=== PATIENT | female | born 1950 | race Caucasian/White ===

== ENCOUNTER 2017-09-01 20:30 | Inpatient (IN) | payer MEDICARE, OTHER ==
[~2017-09-01] VITALS: Ht 160 cm; Wt 64.4 kg
[2017-09-01] MEDS ORDERED: LAMO100T2 PO (20:57)
[2017-09-01] MEDS ORDERED: ESCI10TA PO (20:57)
[2017-09-01] MEDS ORDERED: SENN-167 PO (21:00)
[2017-09-01] MEDS ORDERED: LORA-258 PO (21:00)
[2017-09-01] MEDS ORDERED: DOCU-141 PO (21:00)
[2017-09-01] MEDS ORDERED: ACET-2154 PO (21:00)
[2017-09-01] MEDS ORDERED: NA P133E RC (21:00)
[2017-09-01] MEDS ORDERED: BISA5TAB13 PR (21:00)
[2017-09-01] MEDS ORDERED: MAGN400O6 PO (21:00)
[2017-09-01] MEDS ORDERED: QUET200T PO (21:00)
[2017-09-01 21:23] LABS: BASOPHILS % (AUTO) 0.3 % (0.0-2.0); EOSINOPHILS % (AUTO) 0.2 % (0.0-7.0); HEMATOCRIT 37.3 % (31.2-41.9); LYMPHOCYTES # (AUTO) 1.8 K/uL (20.0-40.0); LYMPHOCYTES % (AUTO) 12.9 % (20.5-51.5); MEAN CORPUSCULAR HGB CONC 35 g/dL (32.3-35.6); MEAN CORPUSCULAR VOLUME 82.9 fL (75.5-95.3); MONOCYTES # (AUTO) 0.6 K/uL (2.0-10.0); MONOCYTES % (AUTO) 4.4 % (0.0-11.0); NEUTROPHILS # (AUTO) 11.3 K/uL (1.8-8.9); NEUTROPHILS % (AUTO) 82.2 % (38.5-71.5); PLATELET COUNT (AUTO) 404 K/uL (179-408); WHITE BLOOD COUNT (AUTO) 13.8 K/uL (3.8-11.8)
[2017-09-01 21:31] LABS: CARBON DIOXIDE 30 mmol/L (21-32); CHLORIDE 99 mmol/L (98-107); GLUCOSE 107 mg/dL (74-106); POTASSIUM 3.4 mmol/L (3.5-5.1); UREA NITROGEN, BLOOD 14 mg/dL (7-18)
[2017-09-01 21:33] LABS: *BILIRUBIN,URIN NEGATIVE (NEGATIVE); *BLOOD, URINE NEGATIVE (NEGATIVE); *CLARITY,URINE CLEAR (CLEAR); *COLOR,URINE YELLOW (YELLOW); *KETONES,URINE TRACE (NEGATIVE); *PROTEIN,URINE NEGATIVE (NEGATIVE); LEUKOCYTE ESTERASE ,URINE 1+ (NEGATIVE); NITRITE, URINE NEGATIVE (NEGATIVE); UGLUCOSE NEGATIVE (NEGATIVE)
[2017-09-01 21:38] LABS: ETHANOL < 3 MG/DL (0-0)
[2017-09-01 21:44] LABS: THYROID STIMULATING HORMONE 5.048 mIU/mL (0.358-3.740)
[2017-09-01] MEDS ORDERED: OLANZAPINE 5 MG TABLET PO ONE (21:45)
[2017-09-01 21:46] LABS: ALANINE AMINOTRANSFERASE 41 U/L (14-59); ALKALINE PHOSPHATASE 91 U/L (50-136); ASPARTATE AMINOTRANSFERASE 30 U/L (15-37); BILIRUBIN,DIRECT 0.2 mg/dL (0.0-0.2); BILIRUBIN,TOTAL 0.6 mg/dL (0.2-1.0); TOTAL PROTEIN, SERUM 8.3 g/dL (6.4-8.2)
[2017-09-01 21:47] LABS: ACETAMINOPHEN < 2.0 ug/mL (10-30)
[2017-09-01 21:51] LABS: BACTERIA,URINE MODERATE /HPF (NONE SEEN); RBC,URINE 0-3 /HPF (0-3); SQUAMOUS EPITHELIAL CELL,UR FEW /HPF (NONE SEEN); WBC,URINE 0-3 /HPF (0-3)
[2017-09-01 21:55] LABS: *AMPHETAMINE, URINE NEGATIVE (NEGATIVE); *BARBITURATE, URINE NEGATIVE (NEGATIVE); *CANNABINOID, URINE NEGATIVE (NEGATIVE); *COCCAINE, URINE NEGATIVE (NEGATIVE); *OPIATE, URINE NEGATIVE (NEGATIVE); *PHENCYCLIDINE SCREEN,URINE NEGATIVE (NEGATIVE)
[2017-09-01] MEDS ORDERED: OLANZAPINE 5 MG TABLET ONE (21:57)
--- NOTE | 2017-09-01 22:12 | NUR ---
Pt. admitted to GPS, under care of Dr. Cohen Belongs List completed
[2017-09-01 22:30] VITALS: BP 167/91
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
[2017-09-01] MEDS ORDERED: BENA20TA2 PO (23:09)
[2017-09-01] MEDS ORDERED: LORAZEPAM 1 MG TABLET PO PRN (23:15)
[2017-09-01] MEDS ORDERED: TEMAZEPAM 7.5 MG CAPSULE PO PRN (23:15)
[2017-09-01] MEDS ORDERED: MAGNESIUM HYDROXIDE 30 ML LIQUID UDC PO PRN (23:15)
[2017-09-01] MEDS ORDERED: ACETAMINOPHEN 325 MG TABLET PO PRN (23:15)
[2017-09-01] MEDS ORDERED: CLONIDINE HCL 0.1 MG TABLET PO PRN (23:15)
[2017-09-01] MEDS ORDERED: MAG HYDROX/AL HYDROX/SIMETH 30 ML LIQUID UDC PO PRN (23:15)
[2017-09-01] MEDS: LORAZEPAM 0.5 MG TABLET PO PRN (23:17)
--- NOTE | 2017-09-01 23:25 | NUR ---
BP ELEVATED UPON ADMISSION. DR DOYLE NOTIFIED, CLONIDINE 0.1mg ORDERED AND ADMINISTERED. Pt SLEEPING WHEN RN WENT TO RE-CHECK 1 HOUR LATER. APPEARS TO BE IN NO DISTRESS, RESTING COMFORTABLY, BREATHING EVEN AND UNLABORED. WILL RE-CHECK IN AM.
[2017-09-01] MEDS ORDERED: LORAZEPAM 0.5 MG TABLET ONE (23:28)
[2017-09-01] MEDS ORDERED: CLONIDINE HCL 0.1 MG TABLET ONE (23:36)
[2017-09-01] MEDS ORDERED: FLEET ENEMA 133 ML BOTTLE RC PRN (23:45)
--- NOTE | 2017-09-02 07:07 | NUR ---
bp upon re-check 135/78, hr 83
[2017-09-02 08:00] VITALS: BP 124/63
[2017-09-02] MEDS ORDERED: LAMOTRIGINE 100 MG TABLET PO SCH (09:00)
[2017-09-02] MEDS: DOCUSATE SODIUM 100 MG CAPSULE PO SCH (09:05)
[2017-09-02] MEDS: NITROFURANTOIN/NITROFURAN MAC 100 MG CAPSULE PO SCH ×2 (09:06→20:08)
[2017-09-02] MEDS: BENAZEPRIL HCL 20 MG TABLET PO SCH (09:07)
[2017-09-02] MEDS: OLANZAPINE 2.5 MG TABLET PO SCH ×2 (13:36→16:49)
--- NOTE | 2017-09-02 15:31 | NUR ---
Group Therapy Note: S: Pt stated, I haven't done anything with my life O: Pt presented as guarded with a flat affect. . As the session went on the pt began to be more open and aware A: Pt appeared to be engaged during the session. Pt was able to be more positive about her experiences as she realized she had done something with her life. Pt gained insight into her strengths and came to realize that she has been a great help to her family. P: Patient will remain in the milieu and medication will be continued.
[2017-09-02 16:00] VITALS: BP 123/66
--- NOTE | 2017-09-02 17:01 | NUR ---
Initial Discharge Plan: [place] [address]; . Pt's son states that he wants his mother to continue staying at this SNF. SW will follow up with MD, patient, patient's son Clarence ([phone]). SW will form a safe and proper discharge.
[2017-09-02] MEDS: LAMOTRIGINE 100 MG TABLET PO SCH (20:08)
[2017-09-02] MEDS: SENNOSIDES 1 TABLET PO SCH (20:08)
[2017-09-02 20:38] VITALS: BP 137/61
[2017-09-03 07:30] VITALS: BP 152/72
[2017-09-03] MEDS: DOCUSATE SODIUM 100 MG CAPSULE PO SCH (09:04)
[2017-09-03] MEDS: NITROFURANTOIN/NITROFURAN MAC 100 MG CAPSULE PO SCH ×2 (09:04→21:34)
[2017-09-03] MEDS: LAMOTRIGINE 100 MG TABLET PO SCH ×2 (09:04→21:34)
[2017-09-03] MEDS: OLANZAPINE 2.5 MG TABLET PO SCH ×3 (09:05→16:47)
[2017-09-03] MEDS: BENAZEPRIL HCL 20 MG TABLET PO SCH (09:05)
[2017-09-03] MEDS: BENZTROPINE MESYLATE 1 MG TABLET PO SCH ×2 (12:48→16:47)
[2017-09-03] MEDS: risperiDONE 0.25 MG TABLET PO SCH ×2 (12:48→16:47)
[2017-09-03 15:00] VITALS: BP 121/68
[2017-09-03] MEDS ORDERED: hydrALAZINE HCL 25 MG TABLET PO PRN (16:00)
--- NOTE | 2017-09-03 17:47 | NUR ---
Gps/Chief Controller- Had been quiet this pm. remains sitting up in the activity room, less interactive. Had poor insight , encouraged verbalizations of her feelings, delusional. Needed prompting to initiate simple tasks.
[2017-09-03 20:00] VITALS: BP 148/98
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
[2017-09-03] MEDS: SENNOSIDES 1 TABLET PO SCH (21:34)
--- NOTE | 2017-09-04 08:02 | NUR ---
Gps/Lathe Hand- Delusional, paranoid, having flights of ideas, son Feliberto called, verbalized concerns, informed patient refusing to have her blood draws this am, patient thinks she is being jailed for no reason, refusing to talk to her son Feliberto accusing them of putting her to fci.
[2017-09-04] MEDS: OLANZAPINE 2.5 MG TABLET PO SCH ×2 (09:04→13:00)
[2017-09-04] MEDS: BENZTROPINE MESYLATE 1 MG TABLET PO SCH ×3 (09:04→16:48)
[2017-09-04] MEDS: risperiDONE 0.25 MG TABLET PO SCH ×2 (09:04→13:00)
[2017-09-04] MEDS: LAMOTRIGINE 100 MG TABLET PO SCH ×2 (09:04→20:16)
[2017-09-04] MEDS: DOCUSATE SODIUM 100 MG CAPSULE PO SCH (09:19)
[2017-09-04] MEDS: NITROFURANTOIN/NITROFURAN MAC 100 MG CAPSULE PO SCH ×2 (09:20→20:17)
[2017-09-04] MEDS: BENAZEPRIL HCL 10 MG TABLET PO SCH (09:24)
[2017-09-04 16:00] VITALS: BP 157/85
[2017-09-04] MEDS: risperiDONE 0.5 MG TABLET PO SCH (16:59)
[2017-09-04] MEDS ORDERED: risperiDONE 0.25 MG TABLET PO SCH (17:00)
[2017-09-04] MEDS: SENNOSIDES 1 TABLET PO SCH (20:16)
[2017-09-04] MEDS: OLANZAPINE 5 MG TABLET PO SCH (20:17)
[2017-09-04 20:59] VITALS: BP 132/70
[2017-09-04] MEDS ORDERED: OLANZAPINE 2.5 MG TABLET PO SCH ×2 (21:00)
[2017-09-05 07:30] VITALS: BP 124/76
[2017-09-05] MEDS: NITROFURANTOIN/NITROFURAN MAC 100 MG CAPSULE PO SCH ×3 (09:00→20:39)
[2017-09-05] MEDS: BENAZEPRIL HCL 10 MG TABLET PO SCH (09:00)
[2017-09-05] MEDS: risperiDONE 0.5 MG TABLET PO SCH ×2 (09:00→16:49)
[2017-09-05] MEDS: BENZTROPINE MESYLATE 1 MG TABLET PO SCH ×2 (09:00→16:49)
[2017-09-05] MEDS: DOCUSATE SODIUM 100 MG CAPSULE PO SCH (09:00)
[2017-09-05] MEDS: LAMOTRIGINE 100 MG TABLET PO SCH ×3 (09:00→20:38)
[2017-09-05 16:54] VITALS: BP 132/71
[2017-09-05] MEDS: SENNOSIDES 1 TABLET PO SCH ×2 (20:13→20:39)
[2017-09-05] MEDS: OLANZAPINE 5 MG TABLET PO SCH ×2 (20:13→20:39)
[2017-09-05 20:30] VITALS: BP 151/71
[2017-09-06 07:30] VITALS: BP 153/74
[2017-09-06 07:31] LABS: BASOPHILS # (AUTO) 0.1 K/uL (0.0-8.0); BASOPHILS % (AUTO) 0.7 % (0.0-2.0); EOSINOPHILS # (AUTO) 0.1 K/uL (0.0-0.7); EOSINOPHILS % (AUTO) 1.3 % (0.0-7.0); HEMATOCRIT 37.2 % (31.2-41.9); HEMOGLOBIN 12.7 g/dL (10.9-14.3); LYMPHOCYTES # (AUTO) 1.8 K/uL (20.0-40.0); LYMPHOCYTES % (AUTO) 26.3 % (20.5-51.5); MEAN CORPUSCULAR HEMOGLOBIN 28.8 uug (24.7-32.8); MEAN CORPUSCULAR HGB CONC 34 g/dL (32.3-35.6); MEAN CORPUSCULAR VOLUME 84.2 fL (75.5-95.3); MONOCYTES # (AUTO) 0.5 K/uL (2.0-10.0); MONOCYTES % (AUTO) 6.7 % (0.0-11.0); NEUTROPHILS # (AUTO) 4.5 K/uL (1.8-8.9); PLATELET COUNT (AUTO) 317 K/uL (179-408); RED BLOOD CELL COUNT(AUTO) 4.42 MIL/uL (3.63-4.92)
[2017-09-06 07:39] LABS: BILIRUBIN,TOTAL 0.7 mg/dL (0.2-1.0); CREATININE 0.9 mg/dL (0.6-1.3); MAGNESIUM 2.2 mg/dL (1.8-2.4); PHOSPHOROUS 3.2 mg/dL (2.5-4.9); TOTAL PROTEIN, SERUM 7.5 g/dL (6.4-8.2)
[2017-09-06 08:52] LABS: THYROID STIMULATING HORMONE 17.744 mIU/mL (0.358-3.740)
[2017-09-06] MEDS: DOCUSATE SODIUM 100 MG CAPSULE PO SCH (09:00)
[2017-09-06] MEDS: risperiDONE 0.5 MG TABLET PO SCH ×2 (09:00→16:57)
[2017-09-06] MEDS: LAMOTRIGINE 100 MG TABLET PO SCH (09:00)
[2017-09-06] MEDS: BENAZEPRIL HCL 10 MG TABLET PO SCH (09:00)
[2017-09-06] MEDS: BENZTROPINE MESYLATE 1 MG TABLET PO SCH ×2 (09:00→16:57)
[2017-09-06] MEDS: NITROFURANTOIN/NITROFURAN MAC 100 MG CAPSULE PO SCH ×2 (09:00→21:00)
[2017-09-06 20:00] VITALS: BP 143/88
[2017-09-06] MEDS: OLANZAPINE 5 MG TABLET PO SCH (21:00)
[2017-09-06] MEDS: SENNOSIDES 1 TABLET PO SCH (21:00)
[2017-09-07] MEDS: LEVOTHYROXINE SODIUM 25 MCG TABLET PO SCH (06:48)
[2017-09-07 07:30] VITALS: BP 157/87
[2017-09-07] MEDS: BENAZEPRIL HCL 10 MG TABLET PO SCH (08:31)
[2017-09-07] MEDS: DOCUSATE SODIUM 100 MG CAPSULE PO SCH (08:35)
[2017-09-07] MEDS: BENZTROPINE MESYLATE 1 MG TABLET PO SCH ×2 (08:35→16:44)
[2017-09-07] MEDS ORDERED: risperiDONE 0.5 MG TABLET PO SCH (09:00)
[2017-09-07] MEDS: ESCITALOPRAM OXALATE 10 MG TABLET PO SCH (13:09)
[2017-09-07] MEDS: risperiDONE 0.5 MG TABLET PO SCH ×2 (13:09→16:43)
[2017-09-07 17:13] VITALS: BP 121/80
--- NOTE | 2017-09-07 20:00 | NUR ---
PT RECEIVED IN HER ROOM BY THE DOOR STANDING AND LOOKING VERY FEARFUL. DENIES SI/HI/PAIN. TOOK ALL MEDS ORDERED, CONTINUE TO MONITOR CLOSELY.
[2017-09-07] MEDS: OLANZAPINE 5 MG TABLET PO SCH (20:10)
[2017-09-07] MEDS: SENNOSIDES 1 TABLET PO SCH (20:18)
[2017-09-07 20:26] VITALS: BP 126/57
[2017-09-08] MEDS: LEVOTHYROXINE SODIUM 25 MCG TABLET PO SCH (06:50)
[2017-09-08 07:30] VITALS: BP 141/75
[2017-09-08] MEDS: DOCUSATE SODIUM 100 MG CAPSULE PO SCH (08:59)
[2017-09-08] MEDS: ESCITALOPRAM OXALATE 10 MG TABLET PO SCH (08:59)
[2017-09-08] MEDS: BENAZEPRIL HCL 10 MG TABLET PO SCH (08:59)
[2017-09-08] MEDS: BENZTROPINE MESYLATE 1 MG TABLET PO SCH ×2 (08:59→17:51)
[2017-09-08] MEDS: risperiDONE 0.5 MG TABLET PO SCH ×3 (08:59→17:54)
[2017-09-08 15:00] VITALS: BP 128/71
[2017-09-08] MEDS: SENNOSIDES 1 TABLET PO SCH (20:37)
[2017-09-08] MEDS: OLANZAPINE 5 MG TABLET PO SCH (20:37)
[2017-09-08 20:58] VITALS: BP 137/75
[2017-09-08] MEDS ORDERED: risperiDONE 0.25 MG TABLET PO SCH (21:00)
[2017-09-09] MEDS: LEVOTHYROXINE SODIUM 25 MCG TABLET PO SCH (06:55)
[2017-09-09 07:06] LABS: *VITAMIN D 25-OH VIT D 31 ng/mL (.); *VITAMIN D 25-OH, D2 <1.0 ng/mL (.); *VITAMIN D 25-OH, D3 30 ng/mL (.)
[2017-09-09 08:00] VITALS: BP 110/71
[2017-09-09] MEDS: BENZTROPINE MESYLATE 1 MG TABLET PO SCH ×2 (08:46→17:00)
[2017-09-09] MEDS: risperiDONE 0.5 MG TABLET PO SCH ×2 (08:47→12:43)
[2017-09-09] MEDS: ESCITALOPRAM OXALATE 10 MG TABLET PO SCH (08:47)
[2017-09-09] MEDS: DOCUSATE SODIUM 100 MG CAPSULE PO SCH (08:47)
[2017-09-09] MEDS: BENAZEPRIL HCL 10 MG TABLET PO SCH (08:47)
[2017-09-09] MEDS ORDERED: OLANZAPINE 10 MG VIAL IM PRN (12:30)
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
[2017-09-09 16:00] VITALS: BP_SYST 117; BP_SYST 123; BP_DIAS 73; BP_DIAS 75
--- NOTE | 2017-09-09 17:58 | NUR ---
1700 patient pacing with periods of slapping her face, patient asked to stop and redirected to go to the dining room. Patient refused her medications due @ 1700 despite of the encouragement and educating the importance of her medication.
[2017-09-09] MEDS ORDERED: risperiDONE 0.25 MG TABLET PO SCH (20:00)
[2017-09-09 20:28] VITALS: BP 116/70
[2017-09-09] MEDS: SENNOSIDES 1 TABLET PO SCH (20:30)
[2017-09-09] MEDS: OLANZAPINE 10 MG VIAL IM PRN (20:30)
[2017-09-09] MEDS: LORAZEPAM 0.5 MG TABLET PO PRN (22:18)
[2017-09-09 22:19] VITALS: BP 120/72
--- NOTE | 2017-09-09 23:16 | NUR ---
Patient received intrusive, agitated, irritable. Patient refusing HS medication, refusing Risperdal 2mg patient is reised if refusing Risperdal 2mg give Zyprexa 5mg IM, given as ordered due to refusal of risperdal. Patient has poor impulse control, poor judgement, preoccupied with other residents. Patient denies pain at this time, will continue to monitor.
[2017-09-10] MEDS: LEVOTHYROXINE SODIUM 25 MCG TABLET PO SCH (06:47)
[2017-09-10 07:30] VITALS: BP 116/65
[2017-09-10] MEDS: BENZTROPINE MESYLATE 1 MG TABLET PO SCH ×2 (09:07→16:49)
[2017-09-10] MEDS: DOCUSATE SODIUM 100 MG CAPSULE PO SCH (09:07)
[2017-09-10] MEDS: BENAZEPRIL HCL 10 MG TABLET PO SCH (09:07)
[2017-09-10] MEDS: risperiDONE 0.5 MG TABLET PO SCH ×2 (09:08→13:00)
[2017-09-10] MEDS: OLANZAPINE 10 MG VIAL IM PRN (13:10)
[2017-09-10 15:00] VITALS: BP 106/67
[2017-09-10] MEDS ORDERED: MISCELLANEOUS MED XX PRN (15:00)
[2017-09-10] MEDS ORDERED: BENZTROPINE MESYLATE 2 MG/2 ML AMPUL IM PRN (15:00)
[2017-09-10] MEDS ORDERED: INVEGA SUSTENNA 156 MG IM ONE (16:00)
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
[2017-09-10] MEDS: LORAZEPAM 0.5 MG TABLET PO PRN (19:56)
[2017-09-10 20:00] VITALS: BP 121/61
--- NOTE | 2017-09-10 20:02 | NUR ---
GPS: PATIENT WONDERING AROUND. GARBING OTHER PATIENTS. CONFUSED AND DISORIENTED. ATIVAN 0.5 MG GIVEN.
[2017-09-10] MEDS: SENNOSIDES 1 TABLET PO SCH (20:05)
--- NOTE | 2017-09-10 20:57 | NUR ---
GPS: PATIENT IS CALM NOW. PRN EFFECTIVE FOR AGITATIONS.
--- NOTE | 2017-09-11 06:23 | NUR ---
GPS: REMAIN CONFUSED AND DISORIENTED. COOPERATIVE WITH MEDICATIONS AND CARE. SLEPT 9 HRS THROUGH THE NIGHT. NO BEHAVIOR PROBLEM NOTED AT THIS TIME..
[2017-09-11] MEDS: LEVOTHYROXINE SODIUM 25 MCG TABLET PO SCH (06:34)
[2017-09-11 07:30] VITALS: BP 117/80
[2017-09-11] MEDS: BENZTROPINE MESYLATE 1 MG TABLET PO SCH ×2 (08:37→17:05)
[2017-09-11] MEDS: DOCUSATE SODIUM 100 MG CAPSULE PO SCH (08:38)
[2017-09-11] MEDS: BENAZEPRIL HCL 10 MG TABLET PO SCH (08:38)
[2017-09-11] MEDS: LORAZEPAM 0.5 MG TABLET PO PRN (08:39)
[2017-09-11] MEDS ORDERED: OLANZAPINE 10 MG VIAL IM PRN (11:30)
[2017-09-11] MEDS: OLANZAPINE ZYDIS 5 MG TAB.RAPDIS PO SCH ×2 (11:30→21:05)
[2017-09-11] MEDS: OLANZAPINE 10 MG VIAL IM PRN (11:51)
[2017-09-11 15:00] VITALS: BP 112/68
[2017-09-11 20:24] VITALS: BP 117/68
[2017-09-11] MEDS: SENNOSIDES 1 TABLET PO SCH (21:04)
[2017-09-12] MEDS: LEVOTHYROXINE SODIUM 25 MCG TABLET PO SCH (06:18)
[2017-09-12 07:30] VITALS: BP 116/80
[2017-09-12] MEDS: BENZTROPINE MESYLATE 1 MG TABLET PO SCH ×2 (08:57→16:34)
[2017-09-12] MEDS: BENAZEPRIL HCL 10 MG TABLET PO SCH (08:58)
[2017-09-12] MEDS: DOCUSATE SODIUM 100 MG CAPSULE PO SCH (08:58)
[2017-09-12] MEDS: OLANZAPINE ZYDIS 5 MG TAB.RAPDIS PO SCH ×2 (11:44→23:02)
[2017-09-12 15:35] VITALS: BP 110/68
[2017-09-12] MEDS: SENNOSIDES 1 TABLET PO SCH (21:00)
[2017-09-12 21:15] VITALS: BP 94/62
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
--- NOTE | 2017-09-12 23:30 | NUR ---
PATIENT WAS COMPLIANT WITH [facility] MEDICATION REGIMENT. SHE IS AWAKE, HOWEVER, SHE REFUSED PO PRN FOR INSOMNIA MEDICATION AT THIS TIME. WILL CONTINUE TO MONITOR.
[2017-09-13] MEDS: LEVOTHYROXINE SODIUM 25 MCG TABLET PO SCH (06:18)
--- NOTE | 2017-09-13 06:22 | NUR ---
PATIENT SLEPT FOR APPROX 7.30HRS THROUGH THE NIGHT. SHE WAS COMPLIANT WITH [facility] MED. SHE CONTINUE WITH DEPRESSED MOOD, FLAT AFFECT, DISORGANIZED. WHEN ASKED HOW WAS HER NIGHT? SHE STATED "BAD, I FEEL THAT I AM ON AN STAGE." WHEN ASKED WHAT SHE MEANT? SHE KEPT QUITE. WILL CONTINUE TO MONITOR.
[2017-09-13 07:30] VITALS: BP 126/70
[2017-09-13 07:50] LABS: BASOPHILS % (AUTO) 0.6 % (0.0-2.0); EOSINOPHILS # (AUTO) 0.2 K/uL (0.0-0.7); EOSINOPHILS % (AUTO) 2.9 % (0.0-7.0); HEMATOCRIT 37.5 % (31.2-41.9); HEMOGLOBIN 12.6 g/dL (10.9-14.3); LYMPHOCYTES # (AUTO) 1.8 K/uL (20.0-40.0); LYMPHOCYTES % (AUTO) 31.3 % (20.5-51.5); MEAN CORPUSCULAR HEMOGLOBIN 28.7 uug (24.7-32.8); MEAN CORPUSCULAR HGB CONC 34 g/dL (32.3-35.6); MEAN CORPUSCULAR VOLUME 85.1 fL (75.5-95.3); MONOCYTES # (AUTO) 0.4 K/uL (2.0-10.0); MONOCYTES % (AUTO) 7.1 % (0.0-11.0); NEUTROPHILS # (AUTO) 3.3 K/uL (1.8-8.9); NEUTROPHILS % (AUTO) 58.1 % (38.5-71.5); PLATELET COUNT (AUTO) 245 K/uL (179-408); WHITE BLOOD COUNT (AUTO) 5.6 K/uL (3.8-11.8)
[2017-09-13 07:51] LABS: BILIRUBIN,TOTAL 0.3 mg/dL (0.2-1.0); CREATININE 0.7 mg/dL (0.6-1.3); MAGNESIUM 2.3 mg/dL (1.8-2.4); PHOSPHOROUS 3.5 mg/dL (2.5-4.9); POTASSIUM 4.1 mmol/L (3.5-5.1)
[2017-09-13 08:00] LABS: THYROID STIMULATING HORMONE 48.619 mIU/mL (0.358-3.740)
[2017-09-13] MEDS: BENZTROPINE MESYLATE 1 MG TABLET PO SCH ×2 (08:21→16:48)
[2017-09-13] MEDS: BENAZEPRIL HCL 10 MG TABLET PO SCH (08:21)
[2017-09-13] MEDS: DOCUSATE SODIUM 100 MG CAPSULE PO SCH (08:21)
[2017-09-13] MEDS: OLANZAPINE ZYDIS 5 MG TAB.RAPDIS PO SCH (11:53)
[2017-09-13 15:39] VITALS: BP 116/60
[2017-09-13 20:48] VITALS: BP 156/66
[2017-09-13] MEDS: SENNOSIDES 1 TABLET PO SCH (21:34)
[2017-09-14] MEDS: OLANZAPINE ZYDIS 5 MG TAB.RAPDIS PO SCH ×4 (00:27→20:45)
[2017-09-14] MEDS: LEVOTHYROXINE SODIUM 25 MCG TABLET PO SCH (06:51)
[2017-09-14 07:30] VITALS: BP 124/76
[2017-09-14] MEDS: DOCUSATE SODIUM 100 MG CAPSULE PO SCH (09:19)
[2017-09-14] MEDS: BENAZEPRIL HCL 10 MG TABLET PO SCH (09:20)
[2017-09-14] MEDS: BENZTROPINE MESYLATE 1 MG TABLET PO SCH ×2 (09:20→16:34)
--- NOTE | 2017-09-14 11:36 | NUR ---
PER HEIDI DA SILVA TO CHANGE ADMINISTRATION TIME FOR ZYPREXA ZYDIS 5MG TO 9AM AND 9PM.
[2017-09-14 15:40] VITALS: BP 130/78
[2017-09-14 20:45] VITALS: BP 106/64
[2017-09-14] MEDS: SENNOSIDES 1 TABLET PO SCH (20:46)
[2017-09-15] MEDS: LEVOTHYROXINE SODIUM 25 MCG TABLET PO SCH (06:17)
--- NOTE | 2017-09-15 06:17 | NUR ---
PHARMACY NOTE: UNABLE TO SCAN [employer] 25mcg, UNKNOWN [facility] NUMBER.
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
[2017-09-15 07:30] VITALS: BP 114/69
[2017-09-15] MEDS: BENAZEPRIL HCL 10 MG TABLET PO SCH (09:05)
[2017-09-15] MEDS: DOCUSATE SODIUM 100 MG CAPSULE PO SCH (09:05)
[2017-09-15] MEDS: BENZTROPINE MESYLATE 1 MG TABLET PO SCH ×2 (09:05→17:56)
[2017-09-15] MEDS: OLANZAPINE ZYDIS 5 MG TAB.RAPDIS PO SCH ×3 (09:06→20:32)
[2017-09-15 16:56] VITALS: BP 112/70
[2017-09-15] MEDS ORDERED: MAGNESIUM HYDROXIDE 30 ML LIQUID UDC PO ONE (17:15)
[2017-09-15] MEDS ORDERED: BISACODYL 5 MG TABLET.DR PO PRN (17:15)
[2017-09-15 20:00] VITALS: BP 109/71
[2017-09-15] MEDS: SENNOSIDES 1 TABLET PO SCH (20:31)
--- NOTE | 2017-09-15 21:00 | NUR ---
RECEIVED PATIENT IN HER ROOM SITTING IN HER BED. SHE IS A/O X 1. SHE IS ABLE TO MAKE HER NEEDS KNOW. POOR INSIGHT NOTED. DEPRESSED MOOD, BLUNTED AFFECT. PATIENT REMAINS MEDICATION COMPLIANT AT THIS TIME.
[2017-09-16] MEDS: LEVOTHYROXINE SODIUM 25 MCG TABLET PO SCH (06:45)
[2017-09-16 08:00] VITALS: BP 116/72
[2017-09-16] MEDS: DOCUSATE SODIUM 100 MG CAPSULE PO SCH ×2 (10:00→21:17)
[2017-09-16] MEDS: BENZTROPINE MESYLATE 1 MG TABLET PO SCH ×2 (10:00→17:23)
[2017-09-16] MEDS: BENAZEPRIL HCL 10 MG TABLET PO SCH (10:01)
[2017-09-16] MEDS: OLANZAPINE ZYDIS 5 MG TAB.RAPDIS PO SCH ×3 (10:01→21:17)
[2017-09-16] MEDS: OLANZAPINE 10 MG VIAL IM PRN (12:10)
[2017-09-16 16:00] VITALS: BP 96/71
[2017-09-16] MEDS ORDERED: BISACODYL 5 MG TABLET.DR PO ONE (16:15)
--- NOTE | 2017-09-16 18:14 | NUR ---
patient remains delusional , intrusive and paranoid, zyprexa 5mg given with little effecf, pt is med compliant .
[2017-09-16 20:40] VITALS: BP 116/79
[2017-09-16] MEDS: SENNOSIDES 1 TABLET PO SCH (21:17)
--- NOTE | 2017-09-16 21:45 | NUR ---
RECEIVED PATIENT IN THE DAY ROOM. SHE IS A/O X 2. SHE IS CALM AND COOPERATIVE AT THIS TIME. SHE IS ABLE TO WALK WITH STEADY GAIT AND ABLE TO MAKE HER NEEDS KNOW. ABLE TO COMPLY WITH [facility] MEDICATION REGIMENT. SHE WAS NOTED WITH FLAT AFFECTED, DEPRESSED MOOD. SHE IS ABLE TO MAKE EYE CONTACT, FAIR INSIGHT. PATIENT IS SCHEDULE TO BE D/C TO [facility] TOMORROW. SHE REMAINS WITHDRAWN, ANSWER QUESTION WITH FEW WORDS. SHE DENIES HEARING VOICES, AH/V/A OR SI AT THIS TIME. WILL CONTINUE TO MONITOR
[2017-09-17] MEDS: LEVOTHYROXINE SODIUM 25 MCG TABLET PO SCH (06:53)
[2017-09-17 07:30] VITALS: BP 127/73
--- NOTE | 2017-09-17 08:04 | NUR ---
DC Note: Patient will be discharged to [facility] [[id number] [place] [address]; ] via ambulance. Spoke with Osmany at the facility who states they are ready to accept the patient today. Spoke with pt's son, Clarence ([phone]) and pt's sister, Laura ([phone]) who are both aware and agreeable with discharge plans. Pt is aware and agreeable with discharge plans. Patient will follow-up at the facility with Dr. Matute (Driller Hand) and Dr. Cohen (Psychiatrist).
[2017-09-17 08:06] LABS: BILIRUBIN,TOTAL 0.4 mg/dL (0.2-1.0); CREATININE 0.7 mg/dL (0.6-1.3); MAGNESIUM 2.3 mg/dL (1.8-2.4); PHOSPHOROUS 3.9 mg/dL (2.5-4.9); POTASSIUM 4.3 mmol/L (3.5-5.1); TOTAL PROTEIN, SERUM 7.1 g/dL (6.4-8.2)
[2017-09-17 08:28] LABS: BASOPHILS % (AUTO) 0.4 % (0.0-2.0); EOSINOPHILS # (AUTO) 0.2 K/uL (0.0-0.7); EOSINOPHILS % (AUTO) 2.8 % (0.0-7.0); HEMOGLOBIN 13.2 g/dL (10.9-14.3); LYMPHOCYTES # (AUTO) 1.9 K/uL (20.0-40.0); LYMPHOCYTES % (AUTO) 28.3 % (20.5-51.5); MEAN CORPUSCULAR HEMOGLOBIN 28.9 uug (24.7-32.8); MEAN CORPUSCULAR HGB CONC 34 g/dL (32.3-35.6); MEAN CORPUSCULAR VOLUME 85.6 fL (75.5-95.3); MONOCYTES # (AUTO) 0.5 K/uL (2.0-10.0); MONOCYTES % (AUTO) 7.4 % (0.0-11.0); NEUTROPHILS % (AUTO) 61.1 % (38.5-71.5); PLATELET COUNT (AUTO) 247 K/uL (179-408); RED BLOOD CELL COUNT(AUTO) 4.56 MIL/uL (3.63-4.92); WHITE BLOOD COUNT (AUTO) 6.6 K/uL (3.8-11.8)
[2017-09-17] MEDS: BENZTROPINE MESYLATE 1 MG TABLET PO SCH (08:48)
[2017-09-17 08:49] VITALS: BP 127/73
[2017-09-17] MEDS: DOCUSATE SODIUM 100 MG CAPSULE PO SCH (08:49)
[2017-09-17] MEDS: BENAZEPRIL HCL 10 MG TABLET PO SCH (08:49)
[2017-09-17] MEDS ORDERED: [UNRECOGNIZED DRUG - OTHER] IM SCH (09:00)
[2017-09-17] MEDS ORDERED: OLANZAPINE ZYDIS 5 MG TAB.RAPDIS PO SCH (09:00)
[2017-09-17] MEDS ORDERED: PALIPERIDONE IM SCH (09:00)
--- NOTE | 2017-09-17 10:00 | NUR ---
Gps/Md Psychiatry-Called [facility], report given to Nurse Lizette, patient assigned to bed # 17 -B. All belongings given back to patient.Patient sister was present during her transfer. Reviewed medications as requested.. No complaints noted.
== END 2017-09-17 10:45 | DRG 885 ==
LOC: ER 20:33 → GPS 22:27
PROVIDERS: ADMIT Psychiatry & Neurology Psychosomatic Medicine; ATTEND Internal Medicine
DX: F25.0 Schizoaffective disorder, bipolar type (principal); E03.9 Hypothyroidism, unspecified; N39.0 Urinary tract infection, site not specified; E78.5 Hyperlipidemia, unspecified; Z79.899 Other long term (current) drug therapy; I25.2 Old myocardial infarction; F41.8 Other specified anxiety disorders; Z90.710 Acquired absence of both cervix and uterus; E87.6 Hypokalemia; I10 Essential (primary) hypertension; K59.00 Constipation, unspecified; R73.9 Hyperglycemia, unspecified; I25.10 Atherosclerotic heart disease of native coronary artery without angina pectoris
CPT/HCPCS: 36415; 70450; 80307; 83735; 84100; 84443; 85025; 93005; A4663; G0480; G0480-TC; J2358